=== PATIENT | female | born 1980 | race Caucasian/White ===

== ENCOUNTER 2017-01-04 23:26 | Emergency (ER) | payer MEDICAID, MEDICARE ==
[2017-01-04 23:26] VITALS: BMI 18.9
[2017-01-05 00:05] VITALS: BP 115/80; PULSE 86; RESP 16; TEMP 98; O2SAT 99
--- NOTE | 2017-01-05 00:34 | C.PDOC ---
History Of Present Illness A 36 y/o female present to the ER c/o an itchy rash on the back and abdomen that began today. Pt states she does not know if she tried new foods or substances. Pt denies shortness of breath, wheezing, traveling, chills, or fever. Time Seen by Provider: 01/04/17 23:58 Chief Complaint (Nursing): Abnormal Skin Integrity History Per: Patient History/Exam Limitations: no limitations Onset/Duration Of Symptoms: Hrs Current Symptoms Are (Timing): Still Present Location Of Injury: Anterior: Abdomen, Posterior: Back Quality Of Symptoms: Itching Severity: Mild Recent travel outside of the [place]: No Additional History Per: Patient Past Medical History Reviewed: Historical Data, Nursing Documentation, Vital Signs Vital Signs: Last Vital Signs Temp 98.0 F 01/04/17 23:57 Pulse 86 01/04/17 23:57 Resp 16 01/04/17 23:57 BP 115/80 01/04/17 23:57 Pulse Ox 99 01/05/17 22:13 - Medical History PMH: Anemia (2007), Anxiety, Arthritis (diagnosed in 2001), Back Problems, Fractures (back fracture in 2006, pt has osteopenia and taking fosamax at that time) Denies: Chronic Kidney Disease Surgical History: - [facility] Procedures INJECT/INFUSE NEC (03/23/14) NEBULIZER THERAPY (03/23/14) Family History: States: Unknown Family Hx - Social History Hx Alcohol Use: No Hx Substance Use: No - Immunization History Hx Tetanus Toxoid Vaccination: No Hx Influenza Vaccination: No Hx Pneumococcal Vaccination: Yes Review Of Systems Except As Marked, All Systems Reviewed And Found Negative. Constitutional: Negative for: Fever, Chills Respiratory: Negative for: Shortness of Breath, Wheezing Skin: Positive for: Rash (Itchy rash back and abdomen) Physical Exam - Physical Exam Appears: Non-toxic, No Acute Distress Skin: Warm, Dry, Rash ([place] papules to the back and abdomen) Head: Atraumatic, Normacephalic Eye(s): bilateral: Normal Inspection, PERRL, EOMI Oral Mucosa: Moist Tongue: Normal Appearing, No Swelling Lips: Normal Appearing, No Swelling, No Lesions Throat: Normal Neck: Normal ROM, Supple Chest: Symmetrical, No Tenderness Cardiovascular: Rhythm Regular, No Friction Rub, No Murmur Respiratory: Normal Breath Sounds, No Rales, No Rhonchi, No Stridor, No Wheezing Gastrointestinal/Abdominal: Soft, No Tenderness Back: Normal Inspection Extremity: Normal ROM, No Tenderness, No Swelling Neurological/Psych: Oriented x3, Normal Speech, Normal Cognition, Normal Motor Gait: Steady ED Course And Treatment O2 Sat by Pulse Oximetry: 99 (RA) Pulse Ox Interpretation: Normal Medical Decision Making Medical Decision Making: Plans: -Benadryl -PredniSONE -Reassess and disposition Pt also reports having lupus pain used Tramadol with no relief and is requesting new medications for pain On reassessment, patient is resting comfortably, and is in no acute distress. Patient was instructed to follow up with physician/clinic in 1-2 days for further evaluation. Disposition - Disposition Referrals: Kody Fernandez MD [Medical Doctor] - Disposition: HOME/ ROUTINE Disposition Time: 00:34 Condition: GOOD Additional Instructions: Follow up with the medical doctor/clinic within 1-2 days without fail. Return if worsened. Prescriptions: DiphenhydrAMINE [Benadryl] 25 mg PO Q4H PRN #30 cap PRN Reason: Itching / Pruritus oxyCODONE/Acetaminophen [Percocet 5/325 mg Tab] 1 tab PO QID PRN #15 tab PRN Reason: Pain predniSONE [Prednisone] 10 mg PO BID #10 tab Instructions: Urticaria (ED) - Clinical Impression Clinical Impression: Lupus arthritis, Low back pain, Urticaria - Scribe Statement The provider has reviewed the documentation as recorded by the Jenniferiblupe velazco All medical record entries made by the Jenniferiblupe were at my direction and personally dictated by me. I have reviewed the chart and agree that the record accurately reflects my personal performance of the history, physical exam, medical decision making, and the department course for this patient. I have also personally directed, reviewed, and agree with the discharge instructions and disposition.
== END 2017-01-05 00:43 | disposition home or self-care (01) ==
LOC: C.ER 23:26
DX: M32.9 Systemic lupus erythematosus, unspecified (principal); L50.9 Urticaria, unspecified; M54.5 Low back pain

== ENCOUNTER 2017-01-08 15:52 | Emergency (ER) | payer MEDICARE ==
[2017-01-08 15:52] VITALS: BMI 18.9
[2017-01-08 16:04] VITALS: BP 114/83; PULSE 103; RESP 20; TEMP 98.5; O2SAT 98
--- NOTE | 2017-01-08 17:05 | C.PDOC ---
History Of Present Illness 36 yo female w/PMHx of SLE, come in for re-evaluation of pruritic rash developed for past 3 days associated with some bodyaches, chills for past 2 days. Pt admits, was seen here in 3 days ago and was treated for possible allergy, received Rx: prednisone, benadryl without improvement in rash. Otherwise, pt denies previous hx of allergy, fever, headache, dizziness, visual changes, neck pain, CP, SOB, dyspnea, diaphoresis, palpitation, abd. pain, N/V/D , back pain, UTI sx, denies recent travel or known sick contact. Ambulate to Ed for evaluation, not in any apparent distress. Time Seen by Provider: 01/08/17 16:01 Chief Complaint (Nursing): Abnormal Skin Integrity History Per: Patient Onset/Duration Of Symptoms: Gradual Past Medical History Reviewed: Historical Data, Nursing Documentation, Vital Signs Vital Signs: Last Vital Signs Temp 98.5 F 01/08/17 15:58 Pulse 103 H 01/08/17 15:58 Resp 20 01/08/17 15:58 BP 114/83 01/08/17 15:58 Pulse Ox 98 01/08/17 17:13 - Medical History PMH: Anemia (2007), Anxiety, Arthritis (diagnosed in 2001), Back Problems, Fractures (back fracture in 2006, pt has osteopenia and taking fosamax at that time) Denies: Chronic Kidney Disease Surgical History: - [facility] Procedures INJECT/INFUSE NEC (03/23/14) NEBULIZER THERAPY (03/23/14) Family History: States: No Known Family Hx - Social History Hx Alcohol Use: No Hx Substance Use: No - Immunization History Hx Tetanus Toxoid Vaccination: No Hx Influenza Vaccination: No Hx Pneumococcal Vaccination: Yes Review Of Systems Except As Marked, All Systems Reviewed And Found Negative. Constitutional: Positive for: Chills. Negative for: Fever Eyes: Negative for: Vision Change ENT: Negative for: Ear Discharge, Nose Discharge, Throat Pain Cardiovascular: Negative for: Chest Pain, Palpitations, Edema, Light Headedness Respiratory: Negative for: Cough, Shortness of Breath, Wheezing Gastrointestinal: Negative for: Nausea, Vomiting, Abdominal Pain, Diarrhea Genitourinary: Negative for: Dysuria, Frequency Musculoskeletal: Negative for: Neck Pain, Back Pain Skin: Positive for: Rash. Negative for: Lesions, Bruising Neurological: Negative for: Weakness, Numbness, Altered Mental Status, Headache , Dizziness Physical Exam - Physical Exam Appears: Well, Non-toxic, No Acute Distress Skin: Warm, Dry, Rash (scattered macular/papular/vesicular rash in different staged difuse over the body. No cellulitis, or superimposed infection.) Head: Normacephalic Eye(s): bilateral: PERRL Nose: No Discharge Oral Mucosa: Moist, No Drooling Tongue: Normal Appearing, No Lesions Lips: Normal Appearing, No Lesions Throat: Normal, No Erythema, No Exudate, No Drooling Neck: Supple Cardiovascular: Rhythm Regular Respiratory: No Decreased Breath Sounds, No Accessory Muscle Use, No Rales, No Rhonchi, No Stridor, No Wheezing, No Plerual Rub Gastrointestinal/Abdominal: Normal Exam, Soft, No Tenderness Back: Normal Inspection Extremity: No Pedal Edema Neurological/Psych: Oriented x3, Normal Speech ED Course And Treatment O2 Sat by Pulse Oximetry: 98 Pulse Ox Interpretation: Normal Progress Note: On re-eavluation, pt is afebrile, hemodynamiclay stable. Non- toxic. PsuleOx 98% RA. ENT: No acute findings. neck: (-) meningeal sign, (-) JVD. Lungs: CTA B/L, BS equal B/L. Abd: benign. Skin; exam c/w rash likely consistent with chiken pox. NO evidence of superimposed infection,cellulitis. Neurologicaly intact. Pt was evaluated by PMD and antiviral, supportive care recommend. Pt advised and ref. to F/u with PMD in 2-3 days for re-eval. return if any new changes. Disposition Counseled Patient/Family Regarding: Diagnosis, Need For Followup, Rx Given - Disposition Referrals: [facility] [Outside] Disposition: HOME/ ROUTINE Disposition Time: 16:48 Condition: STABLE Additional Instructions: Encourage fluids Tylenol for fever and pain and Benadryl for itchiness as need Prescriptions: Acyclovir [Zovirax] 800 mg PO Q6 #30 tab Instructions: Chickenpox (ED) - Clinical Impression Clinical Impression: Chicken pox
== END 2017-01-08 17:13 | disposition home or self-care (01) ==
LOC: C.ER 15:52
DX: B01.9 Varicella without complication (principal)

== ENCOUNTER 2017-01-21 20:22 | Emergency (ER) | payer MEDICARE ==
[2017-01-21 20:23] VITALS: BMI 18.9
[2017-01-21 20:53] VITALS: RESP 20; O2SAT 100
--- NOTE | 2017-01-21 20:58 | C.PDOC ---
History Of Present Illness 36 year old patient presents to the ED complaining of nausea, vomiting and abdominal pain since tonight. Patient states the pain began after eating steak and potatoes. She notes streaks of blood in her vomit. Patient also complains of generalized malaise. Patient denies any fever or chills. Time Seen by Provider: 01/21/17 20:58 Chief Complaint (Nursing): Abdominal Pain History Per: Patient History/Exam Limitations: no limitations Onset/Duration Of Symptoms: Hrs (tonight) Current Symptoms Are (Timing): Still Present Context: Food Severity: Mild Pain Scale Rating Of: 4 Location Of Pain/Discomfort: Diffuse Radiation Of Pain To:: None Quality Of Discomfort: "Pain" Associated Symptoms: Nausea, Vomiting, Other (generalized malaise) Exacerbating Factors: Food Alleviating Factors: None Last Bowel Movement: Today Recent travel outside of the [place]: No Additional History Per: Patient Past Medical History Reviewed: Historical Data, Nursing Documentation, Vital Signs Vital Signs: Last Vital Signs Temp 98.9 F 01/21/17 20:50 Pulse 115 H 01/21/17 20:50 Resp 20 01/21/17 20:50 BP 135/84 01/21/17 20:50 Pulse Ox 100 01/21/17 22:41 - Medical History PMH: Anemia (2007), Anxiety, Arthritis (diagnosed in 2001), Back Problems, Fractures (back fracture in 2006, pt has osteopenia and taking fosamax at that time) Surgical History: - [facility] Procedures INJECT/INFUSE NEC (03/23/14) NEBULIZER THERAPY (03/23/14) Family History: States: Unknown Family Hx - Social History Hx Alcohol Use: No Hx Substance Use: No - Immunization History Hx Tetanus Toxoid Vaccination: No Hx Influenza Vaccination: No Hx Pneumococcal Vaccination: Yes Review Of Systems Constitutional: Negative for: Fever, Chills Gastrointestinal: Positive for: Nausea, Vomiting, Abdominal Pain Physical Exam - Physical Exam Appears: Non-toxic, No Acute Distress Skin: Warm, Dry Head: Atraumatic, Normacephalic Oral Mucosa: Dry Neck: Supple Chest: Symmetrical Cardiovascular: Rhythm Regular Respiratory: No Rales, No Rhonchi, No Wheezing Gastrointestinal/Abdominal: Soft, Tenderness (mild epigastric), No Guarding, No Rebound Back: No CVA Tenderness Extremity: Bilateral: Atraumatic, Normal Color And Temperature Neurological/Psych: Oriented x3, Normal Speech ED Course And Treatment - Laboratory Results Result Diagrams: 01/21/17 21:46 01/21/17 21:46 O2 Sat by Pulse Oximetry: 100 (room air) Pulse Ox Interpretation: Normal Progress Note: Plan: Labs, Protonix, IV fluids, Zofran Reevaluation Time: 23:50 Reassessment Condition: Improved Medical Decision Making Medical Decision Making: Upon provider reevaluation patient is feeling better, is medically stable, and requires no further treatment in the ED at this time. Patient will be discharged home with Rx for protonix and zofran . Counseling was provided and all questions were answered regarding diagnosis and need for follow up with dr candelaria. There is agreement to discharge plan. Return if symptoms persist or worsen. Disposition Counseled Patient/Family Regarding: Studies Performed, Diagnosis, Need For Followup, Rx Given - Disposition Referrals: Kody Candelaria MD [Medical Doctor] - Disposition: HOME/ ROUTINE Disposition Time: 20:58 Condition: FAIR Prescriptions: Ondansetron ODT [Zofran ODT] 1 odt PO BID PRN #15 odt PRN Reason: Nausea/Vomiting Pantoprazole Sodium [Protonix] 40 mg PO DAILY #15 ect Instructions: Abdominal Pain (ED), Acute Nausea and Vomiting (ED), Pulmonary Nodules (ED) - Clinical Impression Clinical Impression: Abdominal pain, Nausea, Vomiting, Pulmonary nodule - Scribe Statement The provider has reviewed the documentation as recorded by the Scriblupe Galdamez Provider Attestation: All medical record entries made by the Scribe were at my direction and personally dictated by me. I have reviewed the chart and agree that the record accurately reflects my personal performance of the history, physical exam, medical decision making, and the department course for this patient. I have also personally directed, reviewed, and agree with the discharge instructions and disposition.
[2017-01-21] MEDS ORDERED: Sodium Chloride 0.9% 1,000 ML IV ONE (21:03)
[2017-01-21 21:58] LABS: BASO % 0.3 % (0.0-2.0); EOS % 0.6 % (0.0-4.0); HEMATOCRIT 40.5 % (34.0-47.0); LYMPH # 1.7 K/uL (1.0-4.3); LYMPH % 22.6 % (20.0-40.0); MEAN CORPUSCULAR HEMOGLOBIN 32.6 pg (27.0-31.0); MEAN CORPUSCULAR HGB CONC 34.8 g/dL (33.0-37.0); MEAN PLATELET VOLUME 7.1 fL (7.2-11.7); MONO # 0.7 K/uL (0.0-0.8); MONO % 8.8 % (0.0-10.0); NRBC % 0.1 % (0.0-2.0); WHITE BLOOD COUNT 7.5 K/uL (4.8-10.8)
[2017-01-21 21:59] LABS: RBC URINE 2 /hpf (0-3); URINE BACTERIA OCC (<OCC); URINE BILIRUBIN NEGATIVE (NEGATIVE); URINE BLOOD NEGATIVE (NEGATIVE); URINE COLOR Yellow (YELLOW); URINE GLUCOSE (UA) NORMAL (Normal); URINE KETONE NEGATIVE (NEGATIVE); URINE PROTEIN NEGATIVE (NEGATIVE); URINE UROBILINOGEN NORMAL mg/dL (0.2-1.0); WBC URINE 10 /hpf (0-5)
[2017-01-21 22:00] LABS: MEAN CELL VOLUME 93.6 fL (81.0-99.0)
[2017-01-21 22:01] LABS: URINE LEUKOCYTE ESTERASE 1+ Leu/uL (Negative)
[2017-01-21 22:03] LABS: CHLORIDE 101 mmol/L (98-107); POTASSIUM 3.7 mmol/L (3.6-5.2); SODIUM 139 mmol/L (132-148)
[2017-01-21] MEDS ORDERED: Sodium Chloride 0.9% 1,000 ML ONE (22:04)
[2017-01-21 22:05] LABS: ALB/GLOB RATIO 1.2 (1.0-2.1); AST/SGOT 35 U/L (14-36); BILIRUBIN,TOTAL 1.7 mg/dL (0.2-1.3); CARBON DIOXIDE 26 mmol/L (22-30); GFR AFRICAN-AMERICAN > 60; INR 1.4; TOTAL PROTEIN 8.3 g/dL (6.3-8.3)
[2017-01-21 22:06] LABS: ALKALINE PHOSPHATASE 60 U/L (38-126); ALT/SGPT 21 U/L (9-52); BLOOD UREA NITROGEN 6 mg/dL (7-17); CALCIUM 8.4 mg/dl (8.6-10.4); GLUCOSE,RANDOM 91 mg/dL (65-105)
[2017-01-22 00:41] VITALS: BP 110/98; PULSE 88; TEMP 98.1
--- NOTE | 2017-01-22 08:14 | CT ---
PROCEDURE: CT Abdomen and Pelvis without intravenous contrast HISTORY: Abdominal and mid epigastric pain COMPARISON: None. TECHNIQUE: Multiple contiguous axial images were performed through the abdomen and pelvis without intravenous contrast. Subsequently, sagittal and coronal reformatted images were obtained. The. Radiation dose: Total exam DLP = 186 mGy-cm. This CT exam was performed using one or more of the following dose reduction techniques: Automated exposure control, adjustment of the mA and/or kV according to patient size, and/or use of iterative reconstruction technique. FINDINGS: LOWER THORAX: Scattered bibasilar ground-glass consolidation. 7.4 millimeter pulmonary nodule is identified within the left lower lobe on series 5, image 16. Additional 4 millimeter pulmonary nodule within the posterior aspect of the left upper lobe on series 5, image 4. Smaller punctate nodules in both lungs diffusely. Correlation with chest CT may be helpful if clinically indicated. 3.5 millimeter pulmonary nodule at the lateral aspect of the right lower lobe. LIVER: Enlarged. Diffuse increased attenuation suggestive for fatty infiltration. GALLBLADDER AND BILE DUCTS: Unremarkable. PANCREAS: Limited evaluation of the pancreas secondary to lack of intravenous contrast. SPLEEN: Unremarkable. ADRENALS: Unremarkable. No mass. KIDNEYS AND URETERS: Prominence of the bilateral renal collecting systems likely related to bladder distention. No obstructing calculi. VASCULATURE: Unremarkable. No aortic aneurysm. BOWEL: Extensive retained fecal enteric contents throughout the colon and small bowel. APPENDIX: Unremarkable. Normal appendix. PERITONEUM: Unremarkable. No free fluid. No free air. LYMPH NODES: Limited evaluation without intravenous contrast. BLADDER: Moderately distended urinary bladder. REPRODUCTIVE: Unremarkable. BONES: Degenerative changes in the spine with loss of height of several thoracic and lumbar vertebral bodies. OTHER FINDINGS: Multiple calcified phleboliths in the pelvis. Limited study without contrast. IMPRESSION: Markedly limited evaluation of the pancreas secondary to lack of intravenous contrast and intra-abdominal fat. If pancreatic pathology is suspected clinically, repeat imaging of the abdomen may be performed with intravenous contrast. Clinical correlation. Prominence of the bilateral renal collecting systems, likely related to urinary bladder overdistention. Fatty infiltration of an enlarged liver. Bilateral pulmonary nodules; left greater than right. Correlation with chest CT may be helpful if clinically indicated. Additional findings as above. These findings were preliminarily reported at 11:26 p.m. on 01/21/[address] Amberly Reynaga from [facility].
== END 2017-01-21 23:45 | disposition home or self-care (01) ==
LOC: C.ER 20:22
DX: R11.2 Nausea with vomiting, unspecified (principal); R10.13 Epigastric pain; R91.1 Solitary pulmonary nodule
CPT/HCPCS: 74176; 80053; 81001; 83690; 84703; 85025; 85610; 85730; 96374; 96375; 99284; C9113; J2405; J7040

== ENCOUNTER 2017-02-06 19:53 | Emergency (ER) | payer MEDICARE ==
[2017-02-06 19:53] VITALS: BMI 18.9
[2017-02-06 20:06] VITALS: BP 118/80; PULSE 87; RESP 18; TEMP 98.9; O2SAT 100
[2017-02-06 20:44] LABS: RBC URINE 1 /hpf (0-3); URINE BACTERIA RARE (<OCC); URINE BILIRUBIN NEGATIVE (NEGATIVE); URINE BLOOD NEGATIVE (NEGATIVE); URINE COLOR Yellow (YELLOW); URINE GLUCOSE (UA) NORMAL (Normal); URINE KETONE NEGATIVE (NEGATIVE); URINE LEUKOCYTE ESTERASE 1+ Leu/uL (Negative); URINE PROTEIN NEGATIVE (NEGATIVE); WBC URINE 9 /hpf (0-5)
--- NOTE | 2017-02-06 21:31 | C.PDOC ---
History Of Present Illness 36 year old patient presents to the ED complaining of foul smelling urine, dysuria and frequency for the past 1.5 weeks. Patient was evaluated 1.5 weeks ago for nausea and vomiting which have now resolved. Pt notes she was diagnosed with UTI at the time, no RX was given and symptoms persist. Patient has a history of frequent UTIs, but she hasn't had one in the past 2 months. Patient denies fever, back pain, vaginal discharge or bleeding. Time Seen by Provider: 02/06/17 20:11 Chief Complaint (Nursing): Female Genitourinary History Per: Patient History/Exam Limitations: no limitations Onset/Duration Of Symptoms: Other (1.5 weeks) Current Symptoms Are (Timing): Still Present Severity: Mild Pain Scale Rating Of: 3 Quality Of Discomfort: Burning, "Pain" Associated Symptoms: Urinary Symptoms Alleviating Factors: None Recent travel outside of the [place]: No Abnormal Vaginal Bleeding: No Past Medical History Reviewed: Historical Data, Nursing Documentation, Vital Signs Vital Signs: Last Vital Signs Temp 98.9 F 02/06/17 20:02 Pulse 87 02/06/17 20:02 Resp 18 02/06/17 20:02 BP 118/80 02/06/17 20:02 Pulse Ox 100 02/06/17 21:36 - Medical History PMH: Anxiety, Arthritis (diagnosed in 2001), Back Problems, Fractures (back fracture in 2006, pt has osteopenia and taking fosamax at that time) Surgical History: - [facility] Procedures INJECT/INFUSE NEC (03/23/14) NEBULIZER THERAPY (03/23/14) Family History: States: Unknown Family Hx - Social History Hx Alcohol Use: No Hx Substance Use: No - Immunization History Hx Tetanus Toxoid Vaccination: No Hx Influenza Vaccination: No Hx Pneumococcal Vaccination: Yes Review Of Systems Except As Marked, All Systems Reviewed And Found Negative. Constitutional: Negative for: Fever Genitourinary: Positive for: Dysuria, Frequency, Other (foul smelling urine). Negative for: Vaginal Discharge, Vaginal Bleeding Musculoskeletal: Negative for: Back Pain Physical Exam - Physical Exam Appears: Non-toxic, No Acute Distress Skin: Warm, Dry Head: Atraumatic, Normacephalic Eye(s): bilateral: Normal Inspection, EOMI Nose: Normal Oral Mucosa: Moist Teeth: No Normal Dentition (poor dentition) Neck: Normal ROM, Supple Chest: Symmetrical Cardiovascular: Rhythm Regular Respiratory: Normal Breath Sounds, No Accessory Muscle Use, No Rales, No Rhonchi , No Wheezing Gastrointestinal/Abdominal: Soft, No Tenderness, No Guarding, No Rebound Extremity: Normal ROM Extremity: Bilateral: Atraumatic Neurological/Psych: Oriented x3, Normal Speech, Normal Cognition Gait: Steady ED Course And Treatment O2 Sat by Pulse Oximetry: 100 (room air) Pulse Ox Interpretation: Normal Progress Note: Plan: Urine culture, Urinalysis. Discussed urinalysis results with the patient. No significant infection is noted, will be treated for clinical cystitis. Patient is advised to follow up with PMD in 1-2 days or return if symptoms worsen/persist. Disposition - Disposition Referrals: Kody Fernandez MD [Primary Care Provider] - Tyson Del Toro MD [Staff Provider] - Disposition: HOME/ ROUTINE Disposition Time: 20:00 Condition: STABLE Additional Instructions: Follow up with referral physician in 1-2 days without fail for further evaluation. Take medications as prescribed. Return to the emergency department at any time if symptoms persist or worsen. Prescriptions: Nitrofurantoin Macrocrystals [Macrobid] 1 cap PO BID #10 cap Instructions: Urinary Tract Infection in Women (ED) - Clinical Impression Clinical Impression: Cystitis - Scribe Statement The provider has reviewed the documentation as recorded by the Scribe Katia Galdamez All medical record entries made by the Scribe were at my direction and personally dictated by me. I have reviewed the chart and agree that the record accurately reflects my personal performance of the history, physical exam, medical decision making, and the department course for this patient. I have also personally directed, reviewed, and agree with the discharge instructions and disposition.
== END 2017-02-06 21:11 | disposition home or self-care (01) ==
LOC: SUPCPDRO 19:53 → C.ER 19:53
DX: N30.90 Cystitis, unspecified without hematuria (principal); B96.20 Unspecified Escherichia coli [E. coli] as the cause of diseases classified elsewhere

== ENCOUNTER 2017-03-30 00:41 | Emergency (ER) | payer MEDICARE ==
[2017-03-30 00:42] VITALS: BMI 18.9
[2017-03-30 00:49] VITALS: BP 126/69; PULSE 85; RESP 18; TEMP 98; O2SAT 98
== END 2017-03-30 02:31 | disposition home or self-care (01) ==
LOC: C.ER 00:41
DX: J06.9 Acute upper respiratory infection, unspecified (principal); R10.30 Lower abdominal pain, unspecified

== ENCOUNTER 2017-07-02 01:28 | Emergency (ER) | payer MEDICARE ==
[2017-06-28 13:16] VITALS: BMI 18.9
[2017-07-02 05:41] LABS: INR 1.3
[2017-07-02 05:45] LABS: BASO % 0.7 % (0.0-2.0); EOS % 0.7 % (0.0-4.0); HEMATOCRIT 39.9 % (34.0-47.0); LYMPH # 1.6 K/uL (1.0-4.3); LYMPH % 23.5 % (20.0-40.0); MEAN CORPUSCULAR HEMOGLOBIN 31.7 pg (27.0-31.0); MEAN CORPUSCULAR HGB CONC 33.7 g/dL (33.0-37.0); MEAN PLATELET VOLUME 7.3 fL (7.2-11.7); MONO # 0.6 K/uL (0.0-0.8); MONO % 8.6 % (0.0-10.0); NRBC % 0.1 % (0.0-2.0); RED CELL DISTRIBUTION WIDTH 12.5 % (11.5-14.5); WHITE BLOOD COUNT 6.8 K/uL (4.8-10.8)
[2017-07-02 05:56] LABS: ALKALINE PHOSPHATASE 63 U/L (38-126); ALT/SGPT 35 U/L (9-52); AST/SGOT 37 U/L (14-36); BILIRUBIN,TOTAL 1.9 mg/dL (0.2-1.3); BLOOD UREA NITROGEN 9 mg/dL (7-17); CARBON DIOXIDE 21 mmol/L (22-30); CHLORIDE 104 mmol/L (98-107); GFR AFRICAN-AMERICAN > 60; GLUCOSE,RANDOM 72 mg/dL (65-105); POTASSIUM 4.6 mmol/L (3.6-5.2); SODIUM 136 mmol/L (132-148); TOTAL PROTEIN 9.1 g/dL (6.3-8.3)
[2017-07-02 06:21] VITALS: BP 115/86; PULSE 80; RESP 16; TEMP 98; O2SAT 99
[2017-07-02 07:34] LABS: RBC URINE 1 /hpf (0-3); URINE BILIRUBIN NEGATIVE (NEGATIVE); URINE BLOOD NEGATIVE (NEGATIVE); URINE COLOR Yellow (YELLOW); URINE GLUCOSE (UA) NORMAL (Normal); URINE KETONE NEGATIVE (NEGATIVE); URINE LEUKOCYTE ESTERASE NEG Leu/uL (Negative); URINE PROTEIN NEGATIVE (NEGATIVE); URINE UROBILINOGEN NORMAL mg/dL (0.2-1.0); WBC URINE 3 /hpf (0-5)
--- NOTE | 2017-07-08 12:38 | CARD ---
APPROVED REPORT EKG Measurement Heart [id number] CT [id number] <Conclusion> Normal sinus rhythm Normal ECG
== END 2017-07-02 06:20 | disposition home or self-care (01) ==
LOC: C.ER 01:28
DX: R10.13 Epigastric pain (principal)
CPT/HCPCS: 80053; 81001; 83690; 84703; 85025; 85610; 93005; 96361; 96374; 99281; J1885; J7040

== ENCOUNTER 2017-08-21 11:56 | Emergency (ER) | payer MEDICARE ==
[2017-08-21 11:57] VITALS: BMI 18.9
[2017-08-21 12:08] VITALS: O2SAT 100
[2017-08-21] MEDS ORDERED: Tmp-Smz 800 mg-160 mg DS Tab PO STA (12:51)
--- NOTE | 2017-08-21 12:59 | C.PDOC ---
History Of Present Illness 37 yr old female with PHx of Lupus, compliant with medications, presents to the ER with complaints of left foot pain and redness for the past 3 days. Denies trauma, injury, back pain, leg pain, weakness or numbness. Time Seen by Provider: 08/21/17 12:37 Chief Complaint (Nursing): Lower Extremity Problem/Injury History Per: Patient History/Exam Limitations: no limitations Onset/Duration Of Symptoms: Days (3) Past Medical History Reviewed: Historical Data, Nursing Documentation, Vital Signs Vital Signs: Last Vital Signs Temp 98.3 F 08/21/17 13:41 Pulse 94 H 08/21/17 13:41 Resp 16 08/21/17 13:41 BP 114/80 08/21/17 13:41 Pulse Ox 100 08/21/17 13:41 - Medical History PMH: Anxiety, Arthritis, Back Problems, Fractures (back fracture in 2006), Osteoporosis Surgical History: - [facility] Procedures INJECT/INFUSE NEC (03/23/14) NEBULIZER THERAPY (03/23/14) Family History: States: No Known Family Hx - Social History Hx Alcohol Use: No Hx Substance Use: No - Immunization History Hx Tetanus Toxoid Vaccination: No Hx Influenza Vaccination: No Hx Pneumococcal Vaccination: Yes Review Of Systems Except As Marked, All Systems Reviewed And Found Negative. Musculoskeletal: Positive for: Foot Pain (Left foot pain and redness). Negative for: Back Pain, Leg Pain Neurological: Negative for: Weakness, Numbness Physical Exam - Physical Exam Appears: Non-toxic, No Acute Distress Skin: Warm, Dry, No Rash, Other ((+) erythema to left dorsal. No abscess formation.) Head: Atraumatic, Normacephalic Eye(s): bilateral: Normal Inspection, PERRL, EOMI Oral Mucosa: Moist Cardiovascular: Rhythm Regular, No Murmur Respiratory: Normal Breath Sounds, No Rales, No Rhonchi, No Stridor, No Wheezing Extremity: Normal ROM (Left foot), No Calf Tenderness, No Swelling Neurological/Psych: Oriented x3, Normal Speech, Normal Motor, Normal Sensation, Normal Reflexes ED Course And Treatment O2 Sat by Pulse Oximetry: 100 (RA) Pulse Ox Interpretation: Normal - Other Rad X-Ray - Left Foot X-Ray: Viewed By Me, Read By Radiologist Interpretation: PROCEDURE: Left Foot Radiographs. HISTORY: foot pain. COMPARISON: None. FINDINGS: BONES: Normal. No fracture. JOINTS: Normal. SOFT TISSUES: Normal. OTHER FINDINGS: None. IMPRESSION: Normal left foot radiographs. Medical Decision Making Medical Decision Making: IMPRESSION: Cellulitis PLAN: * X-Ray - Left Foot * clindamycin PO for home * Tramadol PO * Prednisone PO Disposition Counseled Patient/Family Regarding: Studies Performed, Diagnosis, Need For Followup, Rx Given - Disposition Referrals: [facility] [Outside] Disposition: HOME/ ROUTINE Disposition Time: 13:29 Condition: STABLE Additional Instructions: follow up with your doctor in 2 days call to make an appointment take medications as prescribed return to hospital if symptoms worsens or progress Prescriptions: Clindamycin [Cleocin] 300 mg PO QID 10 Days #40 cap Methylprednisolone [Medrol Dose Pack (21 tabs)] 4 mg PO DAILY #21 mg Instructions: Cellulitis (ED) Forms: [facility] (Polish), General Discharge Instructions - Clinical Impression Clinical Impression: Cellulitis - Scribe Statement The provider has reviewed the documentation as recorded by the Lottie Cota Provider Attestation: All medical record entries made by the Lottie were at my direction and personally dictated by me. I have reviewed the chart and agree that the record accurately reflects my personal performance of the history, physical exam, medical decision making, and the department course for this patient. I have also personally directed, reviewed, and agree with the discharge instructions and disposition.
[2017-08-21] MEDS ORDERED: Tmp-Smz 800 mg-160 mg DS Tab ONE (13:08)
--- NOTE | 2017-08-21 13:17 | RAD ---
PROCEDURE: Left Foot Radiographs. HISTORY: foot pain COMPARISON: None. FINDINGS: BONES: Normal. No fracture. JOINTS: Normal. SOFT TISSUES: Normal. OTHER FINDINGS: None. IMPRESSION: Normal left foot radiographs.
[2017-08-21 13:42] VITALS: BP 114/80; PULSE 94; RESP 16; TEMP 98.3
== END 2017-08-21 13:51 | disposition home or self-care (01) ==
LOC: C.ER 11:56
DX: L03.116 Cellulitis of left lower limb (principal); M32.9 Systemic lupus erythematosus, unspecified

== ENCOUNTER 2017-11-19 09:06 | Emergency (ER) | payer MEDICARE ==
[2017-11-19 09:06] VITALS: BMI 18.9
[2017-11-19] MEDS ORDERED: Sodium Chloride 0.9% 1,000 ML IV ONE ×2 (09:40→13:07)
[2017-11-19] MEDS ORDERED: Morphine 4 MG/ML VIAL ONE ×2 (09:55→15:26)
[2017-11-19] MEDS ORDERED: Sodium Chloride 0.9% 1,000 ML ONE ×2 (09:55→13:33)
[2017-11-19 10:33] LABS: BASO # 0.1 K/uL (0.0-0.2); BASO % 0.6 % (0.0-2.0); EOS # 0.1 K/uL (0.0-0.7); EOS % 1.1 % (0.0-4.0); HEMOGLOBIN 15.3 g/dL (11.0-16.0); LYMPH # 0.9 K/uL (1.0-4.3); LYMPH % 9.2 % (20.0-40.0); MEAN CELL VOLUME 94.9 fL (81.0-99.0); MEAN CORPUSCULAR HEMOGLOBIN 33.6 pg (27.0-31.0); MEAN CORPUSCULAR HGB CONC 35.4 g/dL (33.0-37.0); MEAN PLATELET VOLUME 7.4 fL (7.2-11.7); MONO # 0.5 K/uL (0.0-0.8); MONO % 4.7 % (0.0-10.0); NEUT # 8.5 K/uL (1.8-7.0); NEUT % 84.4 % (50.0-75.0); NRBC % 0.1 % (0.0-2.0); PLATELET COUNT 347 K/uL (130-400); RBC 4.56 Mil/uL (3.80-5.20); RED CELL DISTRIBUTION WIDTH 12.7 % (11.5-14.5); WHITE BLOOD COUNT 10.1 K/uL (4.8-10.8)
[2017-11-19 10:41] LABS: HCG,QUALITATIVE URINE NEGATIVE (NEGATIVE)
[2017-11-19 10:43] LABS: SQUAMOUS EPITHIAL 6 /hpf (0-5); URINE BILIRUBIN NEGATIVE (NEGATIVE); URINE BLOOD NEGATIVE (NEGATIVE); URINE CLARITY Hazy (Clear); URINE COLOR Yellow (YELLOW); URINE GLUCOSE (UA) NORMAL (Normal); URINE LEUKOCYTE ESTERASE TRACE Leu/uL (Negative); URINE PROTEIN NEGATIVE (NEGATIVE); URINE UROBILINOGEN NORMAL mg/dL (0.2-1.0)
[2017-11-19 10:45] LABS: ALB/GLOB RATIO 1.2 (1.0-2.1); ALBUMIN 4.2 g/dL (3.5-5.0); ALT/SGPT 12 U/L (9-52); AST/SGOT 42 U/L (14-36); BLOOD UREA NITROGEN 10 mg/dL (7-17); CALCIUM 8.6 mg/dl (8.6-10.4); GFR AFRICAN-AMERICAN > 60; GFR NON-AFRICAN AMERICAN > 60; LIPASE 195 U/L (23-300)
--- NOTE | 2017-11-19 11:07 | C.PDOC ---
History Of Present Illness 37 y/o female with history of SLE, anxiety, arthritis, ostepenia presents to ED with complaints of epigastric abdominal pain with associated multiple episodes of nausea and vomiting since this morning. Patient reports generalized weakness , as well as diffuse body aches. She denies diarrhea, dysuria/hematuria, fever , chest pain, sob, cough, runny nose, sore throat, or any other complaints at this time. Time Seen by Provider: 11/19/17 09:18 Chief Complaint (Nursing): Abdominal Pain History Per: Patient History/Exam Limitations: no limitations Onset/Duration Of Symptoms: Hrs Current Symptoms Are (Timing): Still Present Severity: Moderate Location Of Pain/Discomfort: Epigastric Radiation Of Pain To:: None Associated Symptoms: Nausea, Vomiting. denies: Fever, Diarrhea, Urinary Symptoms Past Medical History Reviewed: Historical Data, Nursing Documentation, Vital Signs Vital Signs: Last Vital Signs Temp 100.1 F H 11/19/17 16:14 Pulse 94 H 11/19/17 16:14 Resp 18 11/19/17 16:14 BP 104/64 11/19/17 16:14 Pulse Ox 97 11/19/17 16:14 - Medical History PMH: Anxiety, Arthritis, Back Problems, Fractures (back fracture in 2006, pt has osteopenia and taking fosamax at that time), Osteoporosis Surgical History: - [facility] Procedures INJECT/INFUSE NEC (03/23/14) NEBULIZER THERAPY (03/23/14) Family History: States: No Known Family Hx - Social History Hx Alcohol Use: No Hx Substance Use: No - Immunization History Hx Tetanus Toxoid Vaccination: No Hx Influenza Vaccination: No Hx Pneumococcal Vaccination: Yes Review Of Systems Except As Marked, All Systems Reviewed And Found Negative. Constitutional: Positive for: Weakness (generalized). Negative for: Fever, Chills Cardiovascular: Negative for: Chest Pain, Palpitations Respiratory: Negative for: Cough, Shortness of Breath Gastrointestinal: Positive for: Nausea, Vomiting, Abdominal Pain. Negative for : Diarrhea Genitourinary: Negative for: Dysuria, Hematuria, Vaginal Discharge, Vaginal Bleeding Skin: Negative for: Rash Neurological: Negative for: Numbness, Headache Physical Exam - Physical Exam Appears: Non-toxic, Chronically Ill, Other (Thin appearing, in mild pain ) Skin: Warm, Dry, No Rash Head: Normacephalic Eye(s): bilateral: Normal Inspection Oral Mucosa: Moist Neck: Supple Cardiovascular: Rhythm Regular, Other (Tachycardic) Respiratory: Normal Breath Sounds, No Rales, No Rhonchi, No Wheezing Gastrointestinal/Abdominal: Bowel Sounds, Soft, Tenderness (diffuse TTP greatest at epigastric area, (-) McBurney's, (-) Ellington's) Back: No CVA Tenderness Neurological/Psych: Oriented x3 Gait: Steady ED Course And Treatment - Laboratory Results Result Diagrams: 11/19/17 10:27 11/19/17 10:27 O2 Sat by Pulse Oximetry: 98 (RA) Pulse Ox Interpretation: Normal Progress Note: Blood work, UA, Upreg ordered and reviewed. Patient given IV Morphine (allergic to NSAIDS/Aspirin) , IV NS bolus, IV zofran. On reassessment , patient continues to c/o perisistent epigastric pain and body aches - IV fentanyl and IV solumedrol given. US of RUQ ordered. Reevaluation Time: 16:10 Reassessment Condition: Improved (On reassessment, patient is resting comfortably, in no current pain or distress. On exam, abdomen is soft and nontender. US normal. Patient is well appearing and comfortable being discharged home. She has appointment scheduled with her teacher music tomorrow. Instructed patient to return to ED if symptoms worsen.) Medical Decision Making Medical Decision Making: differential diagnoses considered: cholecystitis/lithiasis, gastritis, PUD, GERD , gastroenteritis, colitis, SLE exacerbation, chronic pain, malingering, UTI, cystitis, pyelonephritis Disposition Counseled Patient/Family Regarding: Studies Performed, Diagnosis, Need For Followup, Rx Given - Disposition Referrals: Kody Fernandez MD [Medical Doctor] - Disposition: HOME/ ROUTINE Disposition Time: 16:10 Condition: STABLE Additional Instructions: FOLLOW UP WITH YOUR TRACK MAINTAINER TOMORROW SCHEDULED RETURN TO ER IF SYMPTOMS WORSEN Prescriptions: Ondansetron [Zofran Odt] 4 mg PO Q8 PRN #15 odt PRN Reason: Nausea/Vomiting Instructions: Nausea and Vomiting, Adult (DC), Lupus (DC) Forms: [employer] (Frisian) Print Language: PERSIAN - Clinical Impression Clinical Impression: Abdominal pain, Nausea, Vomiting, SLE (systemic lupus erythematosus) - Scribe Statement The provider has reviewed the documentation as recorded by the Jneniferiblupe Duke All medical record entries made by the Scribe were at my direction and personally dictated by me. I have reviewed the chart and agree that the record accurately reflects my personal performance of the history, physical exam, medical decision making, and the department course for this patient. I have also personally directed, reviewed, and agree with the discharge instructions and disposition.
[2017-11-19 11:10] LABS: BANDS 2 % (0-2); EOSINOPHIL 1 % (0-4); LYMPHOCYTE 9 % (20-40); MONOCYTE 4 % (0-10); NEUTROPHIL 83 % (50-75); PLATELET ESTIMATE NORMAL (NORMAL); REACTIVE LYMPHOCYTES 1 % (0-0); TOTAL CELLS COUNTED 100
--- NOTE | 2017-11-19 12:36 | US ---
HISTORY: EPIGASTRIC/RUQ PAIN COMPARISON: Correlations made to CT scan of the abdomen and pelvis dated 06/28/2017. TECHNIQUE: Sonographic evaluation of the right upper quadrant of the abdomen. FINDINGS: LIVER: Measures 15.1 cm in length. Normal echogenicity of the liver parenchyma. No mass. No intrahepatic bile duct dilatation. GALLBLADDER: Unremarkable. No gallstones. COMMON BILE DUCT: Measures 3 mm. No stones. No dilatation. PANCREAS: Unremarkable as visualized. No mass. No ductal dilatation. RIGHT KIDNEY: Measures 10.6 x 4.4 x 4.7 cm in length. Normal echogenicity. No calculus, mass, or hydronephrosis. AORTA: No aneurysmal dilatation. IVC: Unremarkable. OTHER FINDINGS: None . IMPRESSION: Unremarkable right upper quadrant ultrasound
[2017-11-20 11:09] VITALS: BP 104/64; PULSE 94; RESP 18; TEMP 100.1
[2017-11-21 08:50] VITALS: O2SAT 98
== END 2017-11-19 16:15 | disposition home or self-care (01) ==
LOC: C.ER 09:06
DX: M32.9 Systemic lupus erythematosus, unspecified (principal); R11.2 Nausea with vomiting, unspecified; R10.13 Epigastric pain; M19.90 Unspecified osteoarthritis, unspecified site
CPT/HCPCS: 76705; 80053; 81001; 83690; 84703; 85025; 96361; 96374; 96375; 96376; 99285; J2270; J2405; J2930; J3010; J7040

== ENCOUNTER 2018-05-05 14:30 | Emergency (ER) | payer MEDICARE ==
[2018-05-05 14:30] VITALS: BMI 18.9
[2018-05-05] MEDS ORDERED: Promethazine/Cod 6.25mg-10mg/5ml Syr UD PO STA (15:25)
[2018-05-05] MEDS ORDERED: Pantoprazole 40 mg EC Tab PO STA (15:26)
--- NOTE | 2018-05-05 15:39 | C.PDOC ---
History Of Present Illness <Karla Parr P - Last Filed: 05/05/18 17:35> <Karla Arguelles J - Last Filed: 05/05/18 22:52> PGY-[address] Arguelles. Patient is a 37 year old female with PMHx of lupus who presents to ED for cough , shortness of breath, and chills that began yesterday. Patient states the cough is productive of white phlegm. She did not take anything for the cough. Patient also complaining of sharp epigastric abdominal pain, urinary frequency, dysuria, and foul smelling urine for the past week. She also complains of joint pains in hands, fingers and shoulders rated 9/10, which feels like her usual lupus flare. States her lupus becomes exacerbated when she is sick. Treatment with tramadol provided no relief. Patient states she took one of her brother-in- law's oxycodone 10/325mg last night which provided temporary relief of pain. Denies fever, vomiting, diarrhea, chest pain, and headache. PMHx: Lupus PSHx: 2014 Meds: prednisone 5mg daily, plaquenil 200mg daily, Tramadol 100mg PRN, Vitamin B , Vitamin D, Calcium Allergies: Bactrim-lupus flare, bactrim- eye swelling, PCN and aspirin- tongue swelling Social: denies smoking PMD: Dr. Aguilar, Rheum: Dr. Pope (Karla Parr) <Karla Parr P - Last Filed: 05/05/18 17:35> <Karla Arguelles J - Last Filed: 05/05/18 22:52> Time Seen by Provider: 05/05/18 14:49 Chief Complaint (Nursing): Shortness Of Breath Past Medical History - Medical History PMH: Anxiety, Arthritis, Back Problems, Fractures (back fracture in 2006, pt has osteopenia and taking fosamax at that time), Osteoporosis Denies: Anemia, Chronic Kidney Disease Surgical History: Family History: States: Unknown Family Hx - Social History Hx Alcohol Use: No Hx Substance Use: No - Immunization History Hx Tetanus Toxoid Vaccination: No Hx Influenza Vaccination: No Hx Pneumococcal Vaccination: Yes <Karla Parr - Last Filed: 05/05/18 17:35> Vital Signs: Last Vital Signs Temp 98.6 F 05/05/18 16:35 Pulse 86 05/05/18 16:35 Resp 18 05/05/18 16:35 BP 106/71 05/05/18 16:35 Pulse Ox 99 05/05/18 17:38 - [facility] Procedures INJECT/INFUSE NEC (03/23/14) NEBULIZER THERAPY (03/23/14) Review Of Systems Constitutional: Positive for: Chills. Negative for: Fever, Sweats Cardiovascular: Negative for: Chest Pain, Palpitations, Orthopnea, Edema Respiratory: Positive for: Cough, Shortness of Breath. Negative for: Wheezing Gastrointestinal: Positive for: Nausea, Abdominal Pain. Negative for: Vomiting , Diarrhea, Constipation, Melena Genitourinary: Positive for: Dysuria, Frequency. Negative for: Hematuria Musculoskeletal: Positive for: Other (joint pains) Skin: Negative for: Rash Neurological: Negative for: Weakness, Numbness, Confusion, Altered Mental Status , Headache, Dizziness <Karla Parr P - Last Filed: 05/05/18 17:35> Physical Exam - Physical Exam Appears: No Acute Distress Skin: Normal Color, Warm, Dry Head: Atraumatic, Normacephalic Eye(s): bilateral: Normal Inspection, PERRL, EOMI Nose: Normal Oral Mucosa: Moist Throat: Normal Neck: Normal ROM Chest: Symmetrical Cardiovascular: Rhythm Regular, No Edema Respiratory: Normal Breath Sounds, No Decreased Breath Sounds, No Rales, No Rhonchi, No Wheezing Gastrointestinal/Abdominal: Bowel Sounds, Soft, No Tenderness Extremity: Normal ROM, No Tenderness, No Pedal Edema Neurological/Psych: Oriented x3, Normal Speech, Normal Cognition, Normal Cranial Nerves, Normal Motor <Karla Parr P - Last Filed: 05/05/18 17:35> ED Course And Treatment O2 Sat by Pulse Oximetry: 99 - Radiology CXR: Viewed By Me, Read By Radiologist CXR Interpretation: Yes: No Acute Disease Progress Note: Patient states she ran out of her tramadol and requesting a refill. Reevaluation Time: 16:20 <Karla Parr P - Last Filed: 05/05/18 17:35> Supervising Attending Note - Supervising Attending Note The Documented history was done by the: Physician Social Service Agency Director, Attending Physician The documented physical exam was done by the: Physician Social Service Agency Director, Attending Physician - Attestation: I have personally seen and examined this patient.: Yes I have fully participated in the care of the patient.: Yes I have reviewed all pertinent clinical information, including history, physical exam and plan: Yes <Karla Arguelles - Last Filed: 05/05/18 22:52> Disposition - Disposition Disposition Time: 16:30 <Karla Parr P - Last Filed: 05/05/18 17:35> <Karla Arguelles - Last Filed: 05/05/18 22:52> - Disposition Disposition: HOME/ ROUTINE Condition: STABLE Additional Instructions: FOLLOW UP WITH DR POPE SOON POSSIBLE FOR FURTHER MANAGEMENT Prescriptions: Omeprazole Magnesium [Prilosec Otc] 20 mg PO DAILY #30 tcp Prednisone 50 mg PO DAILY #5 tablet Promethazine HCl/Codeine [Prometh-Codein 6.25-10 mg/5 ml] 10 ml PO Q6 PRN #120 ml PRN Reason: SEVERE COUGH ONLY Instructions: Viral Upper Respiratory Infection, Adult (DC), Lupus (DC) Forms: [employer] (Portuguese) - Clinical Impression Clinical Impression: URI (upper respiratory infection), Exacerbation of systemic lupus
[2018-05-05] MEDS ORDERED: Promethazine DM 6.25 mg-15 mg/5 ml Syrup ONE (15:40)
[2018-05-05] MEDS ORDERED: Pantoprazole 40 mg EC Tab PO ONE (15:40)
[2018-05-05] MEDS ORDERED: Promethazine/Cod 6.25mg-10mg/5ml Syr UD ONE (15:43)
--- NOTE | 2018-05-05 16:11 | RAD ---
Date of service: 05/05/2018 HISTORY: cough h/o lupus COMPARISON: 10/09/2016 chest x-ray. Sagittal reconstructed spine CT abdomen and pelvis 06/28/2017 also noted. TECHNIQUE: Chest PA and lateral FINDINGS: LUNGS: No active pulmonary disease. PLEURA: No significant pleural effusion identified. No pneumothorax apparent. CARDIOVASCULAR: Normal. OSSEOUS STRUCTURES: There is slight decrease in height increased can cavity to the superior endplates at the thoraco lumbar spine level - this appearance is probably similar to that depicted on the sagittal CT reconstructed images. Correlate clinically Thoraco lumbar levoscoliosis. VISUALIZED UPPER ABDOMEN: Normal. OTHER FINDINGS: None. IMPRESSION: No acute cardiopulmonary pathology. Osseous changes as above
[2018-05-05 16:36] VITALS: BP 106/71; PULSE 86; RESP 18; TEMP 98.6
[2018-05-05 16:41] VITALS: O2SAT 99
== END 2018-05-05 16:56 | disposition home or self-care (01) ==
LOC: C.ER 14:30
DX: J06.9 Acute upper respiratory infection, unspecified (principal); M32.9 Systemic lupus erythematosus, unspecified

== ENCOUNTER 2018-06-27 21:16 | Emergency (ER) | payer MEDICARE ==
[2018-06-27 21:16] VITALS: BMI 18.9
[2018-06-27 21:23] VITALS: BP 107/77; PULSE 87; RESP 20; TEMP 98.4; O2SAT 100
--- NOTE | 2018-06-27 22:15 | C.PDOC ---
Time Seen by Provider: 06/27/18 21:41 Chief Complaint (Nursing): Back Pain Past Medical History Vital Signs: Last Vital Signs Temp 98.4 F 06/27/18 21:20 Pulse 87 06/27/18 21:20 Resp 20 06/27/18 21:20 BP 107/77 06/27/18 21:20 Pulse Ox 100 06/27/18 21:20 - Medical History PMH: Anxiety, Arthritis, Back Problems, Fractures (back fracture in 2006, pt has osteopenia and taking fosamax at that time), Osteoporosis Denies: Anemia, Chronic Kidney Disease Surgical History: - [facility] Procedures INJECT/INFUSE NEC (03/23/14) NEBULIZER THERAPY (03/23/14) Family History: States: Unknown Family Hx - Social History Hx Alcohol Use: No Hx Substance Use: No - Immunization History Hx Tetanus Toxoid Vaccination: No Hx Influenza Vaccination: No Hx Pneumococcal Vaccination: Yes ED Course And Treatment O2 Sat by Pulse Oximetry: 100 Disposition - Disposition Forms: [employer] (Tamazight)
--- NOTE | 2018-06-27 22:20 | C.PDOC ---
History Of Present Illness 37 y/o female, with history of lupus, comes in to ER complaining of left-sided neck pain and lower back pain, radiating down to legs. Notes that the pain started yesterday and states that she has had history of similar episodes in the past diagnosed as lupus flares. Notes no changes in chronic exacerbation of symptoms. Patient has a screw machine adjuster automatic appointment and pain management appointment in the next couple of days. Denies any new trauma, new symptoms, chest pain, SOB, fever, trauma, abdominal pain, nausea, vomiting, diarrhea, change in sensation, urinary or bowel incontinence. Time Seen by Provider: 06/27/18 21:41 Chief Complaint (Nursing): Back Pain History Per: Patient History/Exam Limitations: no limitations Onset/Duration Of Symptoms: Days Current Symptoms Are (Timing): Still Present Past Medical History Reviewed: Historical Data, Nursing Documentation, Vital Signs Vital Signs: Last Vital Signs Temp 98.4 F 06/27/18 21:20 Pulse 87 06/27/18 21:20 Resp 20 06/27/18 21:20 BP 107/77 06/27/18 21:20 Pulse Ox 100 06/27/18 22:15 - Medical History PMH: Anxiety, Arthritis, Back Problems, Fractures (back fracture in 2006, pt has osteopenia and taking fosamax at that time), Osteoporosis Denies: Anemia, Chronic Kidney Disease Other PMH: Compression fractures secondary to osteopenia Surgical History: - [facility] Procedures INJECT/INFUSE NEC (03/23/14) NEBULIZER THERAPY (03/23/14) Family History: States: No Known Family Hx - Social History Hx Alcohol Use: No Hx Substance Use: No - Immunization History Hx Tetanus Toxoid Vaccination: No Hx Influenza Vaccination: No Hx Pneumococcal Vaccination: Yes Review Of Systems Constitutional: Negative for: Fever, Chills Cardiovascular: Negative for: Chest Pain Respiratory: Negative for: Shortness of Breath Gastrointestinal: Negative for: Nausea, Vomiting, Abdominal Pain, Diarrhea Genitourinary: Negative for: Incontinence Neurological: Negative for: Weakness, Numbness Physical Exam - Physical Exam Appears: Non-toxic, No Acute Distress Skin: Warm, Dry Head: Atraumatic, Normacephalic Eye(s): bilateral: Normal Inspection, EOMI Nose: Normal Oral Mucosa: Moist Neck: No Midline Cervical Tenderness, Other (Left trapezius tenderness; Full ROM) Chest: Symmetrical Cardiovascular: Rhythm Regular Respiratory: Normal Breath Sounds, No Accessory Muscle Use Gastrointestinal/Abdominal: Normal Exam, Soft, No Tenderness Extremity: Normal ROM, Other (diffuse joint tenderness) Extremity: Bilateral: Normal Color And Temperature Neurological/Psych: Oriented x3, Normal Speech Gait: Steady ED Course And Treatment O2 Sat by Pulse Oximetry: 100 (RA) Pulse Ox Interpretation: Normal Progress Note: Patient was offered work up including labs and imaging. Patient requested pain medications and declined the workup. She notes she will follow up with her doctors on friday. On re-evaluation , pt has a steady gait without evidence of pain. Lungs CTA. Afebrile. Tolerating PO. Discussed with her return precautions and to follow up with her screw machine adjuster automatic. Discussed case with Dr. Lam who agreed upon plan and discharge. Disposition - Disposition Disposition: HOME/ ROUTINE Disposition Time: 22:18 Condition: STABLE Additional Instructions: Take your chronic medication as prescribed by your doctor. Follow up with your pain management and screw machine adjuster automatic tomorrow. Return to the ER if symptoms persist or worsen. Instructions: Lupus (DC) Forms: [employer] (Norwegian) - Clinical Impression Clinical Impression: Exacerbation of systemic lupus - PA / FIRE TECHNOLOGY INSTRUCTOR / Resident Statement MD/DO has reviewed & agrees with the documentation as recorded. - Scribe Statement The provider has reviewed the documentation as recorded by the Jenniferiblupe Mancera All medical record entries made by the Lottie were at my direction and personally dictated by me. I have reviewed the chart and agree that the record accurately reflects my personal performance of the history, physical exam, medical decision making, and the department course for this patient. I have also personally directed, reviewed, and agree with the discharge instructions and disposition.
== END 2018-06-27 22:46 | disposition home or self-care (01) ==
LOC: C.ER 21:16
DX: M32.9 Systemic lupus erythematosus, unspecified (principal)
CPT/HCPCS: 96372; 99285; J2270

== ENCOUNTER 2018-07-08 16:14 | Emergency (ER) | payer MEDICARE ==
[2018-07-08 16:14] VITALS: BMI 18.9
[2018-07-08 16:28] VITALS: O2SAT 100
--- NOTE | 2018-07-08 17:34 | RAD ---
Date of service: 07/08/2018 PROCEDURE: Radiographs of the Left Shoulder HISTORY: Fall COMPARISON: Correlation made with prior chest radiograph dated 10/10/2016 which image the left shoulder in AP view. FINDINGS: BONES: Normal. No fracture. JOINTS: Normal. Glenohumeral and acromioclavicular joints preserved. No osteoarthritis. SOFT TISSUES: Normal. OTHER FINDINGS: None. IMPRESSION: No evidence of acute displaced fracture nor dislocation.
--- NOTE | 2018-07-08 17:36 | RAD ---
Date of service: 07/08/2018 PROCEDURE: Cervical Spine Radiographs. Note that the study is somewhat limited due to partial obscuration of the odontoid by overlying occiput in the open-mouth projection. The odontoid is poorly seen seen in the extended linn view HISTORY: Pain. COMPARISON: None available. FINDINGS: BONES: No evidence of acute compression fractures no retropulsed fragments. Vertebral bodies exhibit normal stature. Vertebral bodies and facets normally aligned. DISC SPACES: Disc space heights maintained. SOFT TISSUES: Normal. No prevertebral soft tissue swelling. OTHER FINDINGS: None. IMPRESSION: No evidence of acute compression fractures no retropulsed fragments. Vertebral bodies exhibit normal stature.
[2018-07-08] MEDS ORDERED: Oxycodone/Acetaminophen 5/325 mg Tab PO STA (18:34)
--- NOTE | 2018-07-08 18:34 | C.PDOC ---
History Of Present Illness 37 year old female, whose PMHx includes Lupus, presents to the ED for evaluation of neck and left shoulder pain. Patient sustained a fall and was evaluated in the ED two weeks ago. Patient states she did not undergo XR and was not given pain medication. Review of patient's previous chart indicates that patient presented with atraumatic pain and declined labwork and imaging when she was offered. Patient was evaluated by her metal polisher two days ago and is awaiting the result. Patient has also been evaluated by pain management. Patient states she has a history of osteoporosis and is concerned for a fracture. She denies any new injuries, extremity numbness/weakness. Time Seen by Provider: 07/08/18 16:29 Chief Complaint (Nursing): Back Pain History Per: Patient History/Exam Limitations: no limitations Onset/Duration Of Symptoms: Days Current Symptoms Are (Timing): Still Present Quality Of Discomfort: "Pain" Previous Symptoms: Neck Pain Associated Symptoms: denies: Incontinence, New Weakness, New Numbness Additional History Per: Patient Past Medical History Reviewed: Historical Data, Nursing Documentation, Vital Signs Vital Signs: Last Vital Signs Temp 98.8 F 07/08/18 16:24 Pulse 91 H 07/08/18 16:24 Resp 18 07/08/18 16:24 BP 109/77 07/08/18 16:24 Pulse Ox 100 07/08/18 16:24 - Medical History PMH: Anxiety, Arthritis, Back Problems, Fractures (back fracture in 2006, pt has osteopenia and taking fosamax at that time), Osteoporosis Denies: Anemia, Chronic Kidney Disease Surgical History: - [facility] Procedures INJECT/INFUSE NEC (03/23/14) NEBULIZER THERAPY (03/23/14) Family History: States: Unknown Family Hx - Social History Hx Alcohol Use: No Hx Substance Use: No - Immunization History Hx Tetanus Toxoid Vaccination: No Hx Influenza Vaccination: No Hx Pneumococcal Vaccination: Yes Review Of Systems Musculoskeletal: Positive for: Neck Pain, Shoulder Pain (left ) Neurological: Negative for: Weakness, Numbness Physical Exam - Physical Exam Appears: Non-toxic, No Acute Distress Skin: Normal Color, Warm, Dry Head: Atraumatic, Normacephalic Eye(s): bilateral: Normal Inspection Oral Mucosa: Moist Neck: No Midline Cervical Tenderness, Paracervical Tenderness, Supple Chest: Symmetrical, No Deformity, No Tenderness Cardiovascular: Rhythm Regular Respiratory: Normal Breath Sounds Extremity: Tenderness (left shoulder ), Capillary Refill (less than 2 seconds ), No Deformity, No Swelling Neurological/Psych: Oriented x3, Normal Speech, Normal Cognition ED Course And Treatment O2 Sat by Pulse Oximetry: 100 (on RA) Pulse Ox Interpretation: Normal - Other Rad left shoulder XR X-Ray: Viewed By Me, Read By Radiologist Interpretation: PROCEDURE: Radiographs of the Left Shoulder. HISTORY: Fall. COMPARISON: Correlation made with prior chest radiograph dated 10/10/2016 which image the left shoulder in AP view. FINDINGS: BONES: Normal. No fracture. JOINTS: Normal. Glenohumeral and acromioclavicular joints preserved. No osteoarthritis. SOFT TISSUES: Normal. OTHER FINDINGS: None. IMPRESSION: No evidence of acute displaced fracture nor dislocation. cervical spine XR X-Ray: Viewed By Me, Read By Radiologist Interpretation: Date of service: 07/08/2018. PROCEDURE: Cervical Spine Radiographs. Note that the study is somewhat limited due to partial obscuration of the odontoid by overlying occiput in the open-mouth projection. The odontoid is poorly seen seen in the extended linn view. HISTORY: Pain. COMPARISON: None available. FINDINGS: BONES: No evidence of acute compression fractures no retropulsed fragments. Vertebral bodies exhibit normal stature. Vertebral bodies and facets normally aligned. DISC SPACES: Disc space heights ma intained. SOFT TISSUES: Normal. No prevertebral soft tissue swelling. OTHER FINDINGS: None. IMPRESSION: No evidence of acute compression fractures no retropulsed fragments. Vertebral bodies exhibit normal stature. Progress Note: Cervical spine XR and Left shoulder XR ordered and reviewed. Percocet PO given. On reassessment, patient is resting comfortably, showing no signs of distress and reports an improvement in her symptoms. Patient is ambulatory in the ED with steady gait and is stable for discharge. Advised to follow up with your Reumathologist and cheese specialist within 1-2 days. Return to ED if feel worse. Disposition - Disposition Disposition: HOME/ ROUTINE Disposition Time: 18:32 Condition: STABLE Additional Instructions: Follow up with your Reumathologist and cheese specialist within 1-2 days. Return to ED if feel worse. Instructions: Shoulder Sprain Forms: [employer] (Khmer) - Clinical Impression Clinical Impression: Shoulder pain, Neck pain - PA / OCCUPATIONAL THER / Resident Statement MD/DO has reviewed & agrees with the documentation as recorded. - Scribe Statement The provider has reviewed the documentation as recorded by the Scribe (Lucia Galdamez) All medical record entries made by the Scribe were at my direction and p ersonally dictated by me. I have reviewed the chart and agree that the record accurately reflects my personal performance of the history, physical exam, medical decision making, and the department course for this patient. I have also personally directed, reviewed, and agree with the discharge instructions and disposition.
[2018-07-08 18:38] VITALS: BP 125/85; PULSE 81; RESP 20; TEMP 98.6
[2018-07-08] MEDS ORDERED: Oxycodone/Acetaminophen 5/325 mg Tab ONE (18:42)
== END 2018-07-08 18:42 | disposition home or self-care (01) ==
LOC: C.ER 16:14
DX: M54.2 Cervicalgia (principal); M25.512 Pain in left shoulder

== ENCOUNTER 2018-08-23 01:56 | Emergency (ER) | payer MEDICARE ==
[2018-08-23 01:56] VITALS: BMI 18.9
[2018-08-23 02:10] VITALS: O2SAT 98
--- NOTE | 2018-08-23 04:02 | C.PDOC ---
History Of Present Illness 38 y/o female, with history of lupus and is on prednisone, comes in complaining of pleuritic pain with cough for the past 3 days. States she had a temperature of 99. Also reports of rhinorrhea but denies any sick contacts. Patient has no other complaints. Time Seen by Provider: 08/23/18 02:53 Chief Complaint (Nursing): Cough, Cold, Congestion History Per: Patient History/Exam Limitations: no limitations Onset/Duration Of Symptoms: Days Current Symptoms Are (Timing): Still Present Past Medical History Reviewed: Historical Data, Nursing Documentation, Vital Signs Vital Signs: Last Vital Signs Temp 98.2 F 08/23/18 02:02 Pulse 101 H 08/23/18 02:02 Resp 22 08/23/18 02:02 BP 126/82 08/23/18 02:02 Pulse Ox 98 08/23/18 02:02 - Medical History PMH: Anxiety, Arthritis, Back Problems, Fractures (back fracture in 2006, pt has osteopenia and taking fosamax at that time), Osteoporosis Denies: Anemia, Chronic Kidney Disease Surgical History: - [facility] Procedures INJECT/INFUSE NEC (03/23/14) NEBULIZER THERAPY (03/23/14) Family History: States: No Known Family Hx - Social History Hx Alcohol Use: No Hx Substance Use: No - Immunization History Hx Tetanus Toxoid Vaccination: No Hx Influenza Vaccination: No Hx Pneumococcal Vaccination: Yes Review Of Systems Constitutional: Negative for: Fever ENT: Positive for: Nose Discharge Cardiovascular: Positive for: Chest Pain (pleuritic) Respiratory: Positive for: Cough. Negative for: Shortness of Breath Gastrointestinal: Negative for: Vomiting, Diarrhea Skin: Negative for: Rash Physical Exam - Physical Exam Appears: Non-toxic, No Acute Distress Head: Atraumatic, Normacephalic Eye(s): bilateral: Normal Inspection Nose: Discharge (rhinorrhea) Oral Mucosa: Moist Neck: Supple Cardiovascular: Rhythm Regular, No Murmur Respiratory: No Accessory Muscle Use, No Rales, No Rhonchi, Other (coarse bilateral sounds) Gastrointestinal/Abdominal: Soft, No Tenderness Extremity: Bilateral: Atraumatic, Normal Color And Temperature, Normal ROM Neurological/Psych: Oriented x3, Normal Speech, Normal Cognition ED Course And Treatment O2 Sat by Pulse Oximetry: 98 (RA) Pulse Ox Interpretation: Normal Medical Decision Making Medical Decision Making: Plan: --Chest XR --Flu swab --Ultram PO --Tylenol PO 0544 pt with Questionable infiltrate on cxr, given dose zithromax in ed and will d/c home with zithromax and tessalon perles with tylenol. unclear if pt has allergy to nsaids, will not give to her. Disposition Counseled Patient/Family Regarding: Studies Performed, Diagnosis, Need For Followup, Rx Given - Disposition Disposition: HOME/ ROUTINE Disposition Time: 05:49 Condition: IMPROVED Additional Instructions: Drink increased fluids- avoid dairy. Complete zithromax. Tylrnol for pain. Tessalon perles for cough. FOllow up with your doctor on Friday. Return to ER for any worse symptoms. 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 - Scribe Statement The provider has reviewed the documentation as recorded by the Scribe Irena Mancera All medical record entries made by the Jenniferiblupe were at my direction and personally dictated by me. I have reviewed the chart and agree that the record accurately reflects my personal performance of the history, physical exam, medical decision making, and the department course for this patient. I have also personally directed, reviewed, and agree with the discharge instructions and disposition.
[2018-08-23 06:02] VITALS: BP 118/76; PULSE 86; RESP 18; TEMP 98.6
--- NOTE | 2018-08-23 10:40 | RAD ---
Date of service: 08/23/2018 HISTORY: Cough and shortness of breath COMPARISON: No prior. TECHNIQUE: Chest PA and lateral FINDINGS: LINES AND TUBES: None. LUNG AND PLEURA: The lungs are well inflated and clear. There is linear scar in the right mid lung. No pleural effusion or pneumothorax. HEART AND MEDIASTINUM: The heart is not enlarged. There are aortic atherosclerotic calcifications present. The hilar and mediastinal contours are within normal limits. SKELETAL STRUCTURES: The bony structures are within normal limits for the patient's age. VISUALIZED UPPER ABDOMEN: Normal. OTHER FINDINGS: None. IMPRESSION: No active pulmonary disease.
== END 2018-08-23 06:03 | disposition home or self-care (01) ==
LOC: C.ER 01:56
DX: J06.9 Acute upper respiratory infection, unspecified (principal); M32.9 Systemic lupus erythematosus, unspecified

== ENCOUNTER 2018-08-25 16:56 | Emergency (ER) | payer MEDICARE ==
[2018-08-25 17:13] VITALS: BMI 20.2
[2018-08-25 17:16] VITALS: BP 132/83; PULSE 101; TEMP 98.8; O2SAT 98
[2018-08-25] MEDS ORDERED: Oxycodone/Acetaminophen 5/325 mg Tab PO STA (17:43)
[2018-08-25] MEDS ORDERED: Oxycodone/Acetaminophen 5/325 mg Tab ONE (17:51)
--- NOTE | 2018-08-25 18:42 | C.PDOC ---
Time Seen by Provider: 08/25/18 17:39 Chief Complaint (Nursing): Pain, Chronic Past Medical History Vital Signs: Last Vital Signs Temp 98.8 F 08/25/18 17:13 Pulse 101 H 08/25/18 17:13 Resp 20 08/25/18 17:13 BP 132/83 08/25/18 17:13 Pulse Ox 98 08/25/18 17:13 - Medical History PMH: Anxiety, Arthritis, Back Problems, Fractures (back fracture in 2006, pt has osteopenia and taking fosamax at that time), Osteoporosis Denies: Anemia, Chronic Kidney Disease Surgical History: - [facility] Procedures INJECT/INFUSE NEC (03/23/14) NEBULIZER THERAPY (03/23/14) - Social History Hx Alcohol Use: No Hx Substance Use: No - Immunization History Hx Tetanus Toxoid Vaccination: No Hx Influenza Vaccination: No Hx Pneumococcal Vaccination: Yes ED Course And Treatment O2 Sat by Pulse Oximetry: 98 Disposition - Disposition Disposition: HOME/ ROUTINE Disposition Time: 18:39 Condition: STABLE Additional Instructions: follow up with your doctor within 2 days call to make an appointment your chest xray was preliminary read as no active infection return to ER if symptoms worsens or progress Instructions: Chronic Pain (DC) Forms: [employer] (Yemeni), General Discharge Instructions - Clinical Impression Clinical Impression: Chronic pain
--- NOTE | 2018-08-25 18:45 | C.PDOC ---
History Of Present Illness 38 y/o female, with history of lupus and is being treated for bronchitis, comes in complaining of joint pain and body aches that are similar to lupus flare. Patient states she ran out of pain medications. Denies fever, chills, rash, vomiting, or diarrhea. Time Seen by Provider: 08/25/18 17:39 Chief Complaint (Nursing): Pain, Chronic History Per: Patient History/Exam Limitations: no limitations Onset/Duration Of Symptoms: Days Current Symptoms Are (Timing): Still Present Past Medical History Reviewed: Historical Data, Nursing Documentation, Vital Signs Vital Signs: Last Vital Signs Temp 98.8 F 08/25/18 17:13 Pulse 101 H 08/25/18 17:13 Resp 20 08/25/18 17:13 BP 132/83 08/25/18 17:13 Pulse Ox 98 08/25/18 17:13 - Medical History PMH: Anxiety, Arthritis, Back Problems, Fractures (back fracture in 2006, pt has osteopenia and taking fosamax at that time), Osteoporosis Denies: Anemia, Chronic Kidney Disease Surgical History: - [facility] Procedures INJECT/INFUSE NEC (03/23/14) NEBULIZER THERAPY (03/23/14) Family History: States: No Known Family Hx - Social History Hx Alcohol Use: No Hx Substance Use: No - Immunization History Hx Tetanus Toxoid Vaccination: No Hx Influenza Vaccination: No Hx Pneumococcal Vaccination: Yes Review Of Systems Except As Marked, All Systems Reviewed And Found Negative. Constitutional: Positive for: Other (Body aches) ENT: Positive for: Nose Congestion Respiratory: Positive for: Cough Physical Exam - Physical Exam Appears: Non-toxic, No Acute Distress Skin: Normal Color, Warm, Dry Head: Atraumatic, Tenderness Eye(s): bilateral: Normal Inspection, PERRL, EOMI Oral Mucosa: Moist Neck: Supple Chest: Symmetrical Cardiovascular: Rhythm Regular, No Murmur Respiratory: Normal Breath Sounds, No Rales, No Rhonchi, No Wheezing Gastrointestinal/Abdominal: Soft, No Tenderness Extremity: Bilateral: Normal Color And Temperature, Normal ROM ED Course And Treatment O2 Sat by Pulse Oximetry: 98 (RA) Pulse Ox Interpretation: Normal Medical Decision Making Medical Decision Making: Impression: Bronchitis, lupus flare Plan: --Chest XR --POC --Prednisone 60 mg PO --Percocet PO CXR read as no active disease. Patient will be discharged home and was advised to follow up with pain management doctor tomorrow. Disposition - Disposition Disposition: HOME/ ROUTINE Disposition Time: 19:00 Condition: STABLE Additional Instructions: follow up with your doctor within 2 days call to make an appointment your chest xray was preliminary read as no active infection return to ER if symptoms worsens or progress Instructions: Chronic Pain (DC) Forms: General Discharge Instructions, [facility] (Croatian) - Clinical Impression Clinical Impression: Chronic pain - Scribe Statement The provider has reviewed the documentation as recorded by the Lottie Mancera Provider Attestation: All medical record entries made by the Lottie were at my direction and personally dictated by me. I have reviewed the chart and agree that the record accurately reflects my personal performance of the history, physical exam, medical decision making, and the department course for this patient. I have also personally directed, reviewed, and agree with the discharge instructions and disposition.
[2018-08-25 18:55] VITALS: RESP 18
--- NOTE | 2018-08-26 10:18 | RAD ---
HISTORY: cough COMPARISON: Chest x-ray performed 08/23/18 TECHNIQUE: Chest PA and lateral FINDINGS: LUNGS: No focal consolidation. Please note that chest x-ray has limited sensitivity for the detection of pulmonary masses. PLEURA: No significant pleural effusion. No definite pneumothorax . CARDIOVASCULAR: Heart size appears within normal limits. Atherosclerotic calcification present. OSSEOUS STRUCTURES: No acute osseous abnormality identified. VISUALIZED UPPER ABDOMEN: Unremarkable. OTHER FINDINGS: None. IMPRESSION: No focal consolidation identified.
== END 2018-08-25 18:54 | disposition home or self-care (01) ==
LOC: C.ER 16:56
DX: G89.29 Other chronic pain (principal)

== ENCOUNTER 2018-10-24 02:16 | Emergency (ER) | payer MEDICARE ==
[2018-10-24 02:17] VITALS: BMI 20.2
[2018-10-24] MEDS ORDERED: Albuterol 0.083% Inhal Sol (2.5 mg/3 mL) UD INH STA (03:11)
[2018-10-24] MEDS ORDERED: Albuterol-Ipratrop 3 mg / 0.5 (3 ml) UD IH STA (03:11)
[2018-10-24] MEDS ORDERED: Albuterol-Ipratrop 3 mg / 0.5 (3 ml) UD ONE (03:50)
[2018-10-24] MEDS ORDERED: Albuterol 0.083% Inhal Sol (2.5 mg/3 mL) UD ONE (03:50)
[2018-10-24 04:52] VITALS: BP 106/72; PULSE 112; RESP 24; TEMP 98.4; O2SAT 98
--- NOTE | 2018-10-24 05:10 | C.PDOC ---
History Of Present Illness 38 year old female with a history of lupus presents to the emergency department with reports that she has been sick for a week and a half. Patient complains of cough,congestion, body aches. Patient states that she was evaluated by her PMD who started her on Zithromax and Promethazine for cough, with no relief. Patient visited her PMD again and was started on Tamiflu and ordered an X-ray. Patient went to [facility] [place] done yesterday, yet she never obtained her results. Due to her constant coughing, she presents here to get an x-ray and receive results. Patient also admits to taking Hydrocodone for body aches with no relief. Time Seen by Provider: 10/24/18 02:22 Chief Complaint (Nursing): Cough, Cold, Congestion History Per: Patient History/Exam Limitations: no limitations Onset/Duration Of Symptoms: Other (week and a half) Current Symptoms Are (Timing): Still Present Reports Recently: Treated By A Physician Past Medical History Reviewed: Historical Data, Nursing Documentation, Vital Signs Vital Signs: Last Vital Signs Temp 98.4 F 10/24/18 04:51 Pulse 112 H 10/24/18 04:51 Resp 24 10/24/18 04:51 BP 106/72 10/24/18 04:51 Pulse Ox 98 10/24/18 04:51 - Medical History PMH: Anxiety, Arthritis, Back Problems, Fractures (back fracture in 2006, pt has osteopenia and taking fosamax at that time), Osteoporosis Denies: Anemia, Chronic Kidney Disease Surgical History: - [facility] Procedures INJECT/INFUSE NEC (03/23/14) NEBULIZER THERAPY (03/23/14) Family History: States: No Known Family Hx - Social History Hx Alcohol Use: No Hx Substance Use: No - Immunization History Hx Tetanus Toxoid Vaccination: No Hx Influenza Vaccination: No Hx Pneumococcal Vaccination: Yes Review Of Systems Except As Marked, All Systems Reviewed And Found Negative. Constitutional: Negative for: Fever, Chills ENT: Positive for: Nose Congestion Cardiovascular: Negative for: Chest Pain Respiratory: Positive for: Cough. Negative for: Shortness of Breath Gastrointestinal: Negative for: Nausea, Vomiting, Abdominal Pain, Diarrhea Musculoskeletal: Positive for: Other (body aches) Physical Exam - Physical Exam Appears: Non-toxic, No Acute Distress Skin: Normal Color, Warm, Dry Head: Atraumatic, Normacephalic Eye(s): bilateral: Normal Inspection, PERRL, EOMI Nose: Normal Oral Mucosa: Moist Throat: Normal, No Erythema, No Exudate Neck: Normal, Supple Chest: Symmetrical, No Tenderness Cardiovascular: Rhythm Regular (tachycardic), No Murmur Respiratory: Normal Breath Sounds, No Rales, No Rhonchi, No Wheezing, Other (incessant coughing) Gastrointestinal/Abdominal: Soft, No Tenderness, No Guarding, No Rebound Extremity: Normal ROM Neurological/Psych: Oriented x3, Normal Speech, Normal Cognition ED Course And Treatment O2 Sat by Pulse Oximetry: 98 (RA) Pulse Ox Interpretation: Normal - Radiology CXR: Interpreted by Me, Viewed By Me CXR Interpretation: Yes: No Acute Disease. No: Infiltrates, Other (pneumonia) Progress Note: Plan: CXR. POC Urine . Albuterol 2.5mg INH. Duoneb 3ml IH. Patient was found to be sleeping when I came to re-evaluate her. Decided to let the patient continue sleeping in order to evaluated her tachycardia which she experienced status-post nebulizer treatment. When the nurse made an attempt to re-evaluate the patient, she had eloped. 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 - Scribe Statement The provider has reviewed the documentation as recorded by the Scribe (Chaka Kwon) All medical record entries made by the Scribe were at my direction and personally dictated by me. I have reviewed the chart and agree that the record accurately reflects my personal performance of the history, physical exam, medical decision making, and the department course for this patient. I have also personally directed, reviewed, and agree with the discharge instructions and disposition.
--- NOTE | 2018-10-24 10:03 | RAD ---
Date of service: 10/24/2018 HISTORY: cough COMPARISON: Comparison chest 08/25/2018 TECHNIQUE: Chest PA and lateral FINDINGS: LUNGS: Increased and coarsened interstitial markings with scattered peribronchial cuffing changes likely representing sequela reactive/inflammatory airway disease or viral illness. PLEURA: No significant pleural effusion identified. No pneumothorax apparent. CARDIOVASCULAR: No aortic atherosclerotic calcification present. Normal cardiac size. No pulmonary vascular congestion. OSSEOUS STRUCTURES: No significant abnormalities. VISUALIZED UPPER ABDOMEN: Normal. OTHER FINDINGS: None. IMPRESSION: Increased and coarsened interstitial markings with scattered peribronchial cuffing changes likely representing sequela reactive/inflammatory airway disease or viral illness.
== END 2018-10-24 04:52 | disposition left against medical advice (07) ==
LOC: C.ER 02:16
DX: R05 Cough (principal); R00.0 Tachycardia, unspecified

== ENCOUNTER 2018-10-25 17:22 | Emergency (ER) | payer MEDICARE ==
[2018-10-25 17:39] VITALS: BMI 20.6
[2018-10-25 17:43] VITALS: BP 125/89; PULSE 101; RESP 18; TEMP 99.1; O2SAT 99
[2018-10-25] MEDS ORDERED: Naproxen 550 mg Tab PO STA (17:52)
[2018-10-25] MEDS ORDERED: Neomycin/Polymyxin/Hydrocort Otic Soln BOTTLE AS STA (17:53)
--- NOTE | 2018-10-25 17:57 | C.PDOC ---
History Of Present Illness 38 y/o female comes in to ED for evaluation of left ear pain and discharge. Patient states she felt the ear pain this morning with some clear discharge coming out of the ear. She denies any injuries, fever, sore throat, cough, runny nose, or rashes. Patient does have PMHx of SLE. Time Seen by Provider: 10/25/18 17:44 Chief Complaint (Nursing): ENT Problem History Per: Patient History/Exam Limitations: None Onset/Duration Of Symptoms: Hrs Current Symptoms Are (Timing): Still Present Past Medical History Reviewed: Historical Data, Nursing Documentation, Vital Signs Vital Signs: Last Vital Signs Temp 99.1 F 10/25/18 17:39 Pulse 101 H 10/25/18 17:39 Resp 18 10/25/18 17:39 BP 125/89 10/25/18 17:39 Pulse Ox 99 10/25/18 17:39 - Medical History PMH: Anxiety, Arthritis, Back Problems, Fractures (back fracture in 2006, pt has osteopenia and taking fosamax at that time), Osteoporosis Denies: Anemia, Chronic Kidney Disease Surgical History: - [facility] Procedures INJECT/INFUSE NEC (03/23/14) NEBULIZER THERAPY (03/23/14) Family History: States: No Known Family Hx - Social History Hx Alcohol Use: No Hx Substance Use: No - Immunization History Hx Tetanus Toxoid Vaccination: No Hx Influenza Vaccination: No Hx Pneumococcal Vaccination: Yes Review Of Systems Constitutional: Negative for: Fever, Chills ENT: Positive for: Ear Pain (left ear), Ear Discharge (clear). Negative for: Throat Pain (sore throat), Other (runny nose) Respiratory: Negative for: Cough Skin: Negative for: Rash Neurological: Negative for: Dizziness Physical Exam - Physical Exam Appears: Non-toxic, In Acute Distress (mild) Skin: Warm, Dry Head: Atraumatic, Normacephalic Eye(s): bilateral: Normal Inspection Ear(s): Left: Other (ear canal erythematous, swollen, with clear discharge; no mastoid tenderness to palpation), Right: Normal Oral Mucosa: Moist Throat: Normal, No Erythema, No Exudate Cardiovascular: Rhythm Regular, No Murmur Respiratory: Normal Breath Sounds, No Rales, No Rhonchi, No Wheezing Extremity: Bilateral: Atraumatic, Normal Color And Temperature Neurological/Psych: Oriented x3, Normal Speech ED Course And Treatment O2 Sat by Pulse Oximetry: 99 (RA) Pulse Ox Interpretation: Normal Progress Note: Patient has multiple antibiotic allergies, including ciprofloxacin. Patient was given antibiotics drops and naproxen for the pain. Disposition Counseled Patient/Family Regarding: Diagnosis, Need For Followup, Rx Given - Disposition Referrals: Rubin Rodriguez MD [Medical Doctor] - Marvel Epstein MD [Staff Provider] - Disposition: HOME/ ROUTINE Disposition Time: 18:10 Condition: STABLE Additional Instructions: FOLLOW UP WITH YOUR DOCTOR IN 1-2 DAYS USE MEDICATIONS DIRECTED FOLLOW UP WITH ENT WITHIN 1 WEEK RETURN TO ER IF SYMPTOMS WORSEN Prescriptions: Naproxen 375 mg PO BID PRN #20 tablet PRN Reason: pain Neomycin/Polymyxin B/Hydrocort [Rkpklmvw-Fnxwldasl-Tf Ear Susp] 4 drop OT Q6 #1 bottle Instructions: Outer Ear Infection (DC) Forms: [employer] (Egyptian) Print Language: ITALIAN - Clinical Impression Clinical Impression: Otitis externa, left - Scribe Statement The provider has reviewed the documentation as recorded by the Lottie Mancera Provider Attestation: All medical record entries made by the Lottie were at my direction and personally dictated by me. I have reviewed the chart and agree that the record accurately reflects my personal performance of the history, physical exam, medical decision making, and the department course for this patient. I have also personally directed, reviewed, and agree with the discharge instructions and disposition.
[2018-10-25] MEDS ORDERED: Naproxen 550 mg Tab PO ONE (18:12)
== END 2018-10-25 18:18 | disposition home or self-care (01) ==
LOC: C.ER 17:22
DX: H60.92 Unspecified otitis externa, left ear (principal); M32.9 Systemic lupus erythematosus, unspecified

== ENCOUNTER 2018-12-21 20:40 | Emergency (ER) | payer MEDICARE ==
[2018-12-21 20:40] VITALS: BMI 20.6
[2018-12-21 20:46] VITALS: O2SAT 100
[2018-12-21 21:26] VITALS: TEMP 99
[2018-12-21] MEDS ORDERED: Lidocaine 5% Patch TD STA (21:32)
[2018-12-21] MEDS ORDERED: Lidocaine 5% Patch TD ONE (21:43)
--- NOTE | 2018-12-21 22:23 | C.PDOC ---
History Of Present Illness 38 year old female with PMHx of chronic pain, lupus presents to the ED c/o mid back pain. Patient reports she slipped on a wet floor and hit her back. Patient reports she tried taking her usual pain medications but with no relief to symptoms. Patient denies fever, chills, headache, visual changes, LOC, nausea, vomit, weakness, numbness. Time Seen by Provider: 12/21/18 21:12 Chief Complaint (Nursing): Back Pain History Per: Patient History/Exam Limitations: no limitations Onset/Duration Of Symptoms: Days Current Symptoms Are (Timing): Still Present Quality Of Discomfort: "Pain" Previous Symptoms: Back Pain Recent travel outside of the [place]: No Additional History Per: Patient Past Medical History Reviewed: Historical Data, Nursing Documentation, Vital Signs Vital Signs: Last Vital Signs Temp 99.0 F 12/21/18 21:25 Pulse 94 H 12/21/18 20:44 Resp 18 12/21/18 20:44 BP 147/86 12/21/18 20:44 Pulse Ox 100 12/21/18 20:44 - Medical History PMH: Anxiety, Arthritis, Back Problems, Fractures (back fracture in 2006, pt has osteopenia and taking fosamax at that time), Osteoporosis Denies: Anemia, Chronic Kidney Disease Surgical History: - [facility] Procedures INJECT/INFUSE NEC (03/23/14) NEBULIZER THERAPY (03/23/14) Family History: States: Unknown Family Hx - Social History Hx Alcohol Use: No Hx Substance Use: No - Immunization History Hx Tetanus Toxoid Vaccination: No Hx Influenza Vaccination: No Hx Pneumococcal Vaccination: Yes Review Of Systems Constitutional: Negative for: Fever, Chills Eyes: Negative for: Vision Change Cardiovascular: Negative for: Chest Pain Respiratory: Negative for: Shortness of Breath Gastrointestinal: Negative for: Nausea, Vomiting, Abdominal Pain Genitourinary: Negative for: Incontinence Musculoskeletal: Positive for: Back Pain Skin: Negative for: Rash Neurological: Negative for: Weakness, Numbness, Headache Physical Exam - Physical Exam Appears: Non-toxic, No Acute Distress Skin: Normal Color, Warm, Dry Head: Atraumatic, Normacephalic Eye(s): bilateral: Normal Inspection, PERRL, EOMI Neck: Normal ROM, No Midline Cervical Tenderness, Supple Chest: Symmetrical Cardiovascular: Rhythm Regular Respiratory: Normal Breath Sounds, No Rales, No Rhonchi, No Wheezing Gastrointestinal/Abdominal: Soft, No Tenderness, No Distention Back: No Vertebral Tenderness, No Paraspinal Tenderness Extremity: Normal ROM, No Tenderness, No Swelling Neurological/Psych: Oriented x3, Normal Speech, Normal Cognition, Normal Motor, Normal Sensation Gait: Steady ED Course And Treatment O2 Sat by Pulse Oximetry: 100 (ON RA) Pulse Ox Interpretation: Normal - Other Rad T spine X-Ray X-Ray: Interpreted by Me, Viewed By Me Interpretation: No acute pathology. Osteoporosis Progress Note: Plan: - lidoderm patch. - Morphine 4 mg IM. - T spine X-ray. Patient reports improvement after medication. Patient seen walking with steady upright gait and was advised to follow up with PMD. Disposition - Disposition Disposition: HOME/ ROUTINE Disposition Time: 23:02 Condition: IMPROVED Additional Instructions: Follow up with your PMD and pain management doctor within 1-2 days. Return to ED if feel worse. 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 - Scribe Statement The provider has reviewed the documentation as recorded by the Scribe Kenji Patel All medical record entries made by the Scribe were at my direction and personally dictated by me. I have reviewed the chart and agree that the record accurately reflects my personal performance of the history, physical exam, medical decision making, and the department course for this patient. I have also personally directed, reviewed, and agree with the discharge instructions and disposition.
[2018-12-21] MEDS ORDERED: Morphine 4 MG/ML VIAL ONE (22:50)
[2018-12-21 23:03] VITALS: BP 139/88; PULSE 88; RESP 19
--- NOTE | 2018-12-22 08:23 | RAD ---
Date of service: 12/21/2018 HISTORY: s/p fall, pain COMPARISON: Frontal lateral chest x-ray 10/24/2018 TECHNIQUE: 2 views obtained. FINDINGS: BONES: The mild wedging of the thoraco lumbar level segmental vertebral bodies is similar to the lateral view chest x-ray 10/24/2018. No interval compression fracture suggested. No lytic lesions. No subluxation. There is mild S-shaped thoracolumbar convexity suggested. DISC SPACES: Normal. SOFT TISSUES: Normal. OTHER FINDINGS: Extensive stool retention in upper abdomen noted. IMPRESSION: No interval change in the mild decreased heights/slight wedging of the thoraco lumbar level vertebral bodies compared to 10/24/2018 lateral chest x-ray. No interval fractures appreciated. S shaped scoliosis. Moderate stool retention.
== END 2018-12-21 23:45 | disposition home or self-care (01) ==
LOC: C.ER 20:40
DX: M54.6 Pain in thoracic spine (principal); M32.9 Systemic lupus erythematosus, unspecified; M81.0 Age-related osteoporosis without current pathological fracture
CPT/HCPCS: 72070; 81025; 96372; 99284; J2270

== ENCOUNTER 2018-12-22 15:56 | Emergency (ER) | payer MEDICARE ==
[2018-12-22 15:56] VITALS: BMI 20.6
== END 2018-12-22 16:19 | disposition left against medical advice (07) ==
LOC: C.ER 15:56
DX: Z02.89 Encounter for other administrative examinations (principal); M54.9 Dorsalgia, unspecified

== ENCOUNTER 2019-01-15 15:11 | Emergency (ER) | payer MEDICARE | END 2019-01-15 18:05 | disposition home or self-care (01) | LOC: C.ER 15:11 ==